=== PATIENT | female | born 1985 | race Caucasian/White ===

== ENCOUNTER 2019-11-05 10:02 | Outpatient (CLI) | payer BC, SELFPAY ==
[2019-11-05 11:49] LABS: Free T4 Free Thyroxine 1.02 ng/mL (0.78-2.19)
[2019-11-09 05:01] LABS: Triiodothyronine T3 Free 2.7 pg/mL (2.3-4.2)
== END 2019-11-05 10:03 | disposition home or self-care (01) ==
PROVIDERS: PCP Physician Assistant; Visit Provider Physician Assistant
DX: E05.90 Thyrotoxicosis, unspecified without thyrotoxic crisis or storm (principal)
CPT/HCPCS: 36415; 84439; 84443; 84481

== ENCOUNTER 2019-11-27 12:38 | Outpatient (CLI) | payer BC, SELFPAY ==
--- NOTE | ~2019-11-27 | MR_ITS ---
EXAMINATION: MR abdomen wo/w con INDICATION: Left kidney lesion TECHNIQUE: Coronal SSFSE ARC, WATER:coronal LAVA-FLEX, Coronal 2D FIESTA FatSat, Axial SSFSE BH ARC, Axial 3D DualEcho BH, Axial SSFSE-IR, Axial DWI b=500, Axial 2D FIESTA FatSat, pre and dynamic postco ntrast Axial LAVA ARC, postcontrast Coronal In and Opposed phase LAVA FLEX COMPARISON: CT, 09/08/2019, 12/23/2015 CONTRAST: Multihance, 15 cc FINDINGS: There is an 11 mm T1 and T2 isointense enhancing mass in the posterior aspect of the left k idney lower pole. The liver, spleen, pancreas, and adrenal glands are normal. The gallbladder is surg ically absent. The right kidney is unremarkable. There are no pathologically enlarged abdominal lymph nodes. No dilated loops of bowel are identified. IMPRESSION: 1. Enhancing mass in the posterior aspect of the left kidney lower pole suspicious for renal cell car cinoma. Urologic evaluation is recommended. Reviewed, dictated and finalized at location A. TRUCK OPERATOR IMPRESSION: 1. Enhancing mass in the posterior aspect of the left kidney lower pole suspici ous for renal cell carcinoma. Urologic evaluation is recommended.
[2019-11-27 13:19] LABS: Blood Urea Nitrogen 20 mg/dL (8-26); Estimated Glomerular Filt Rate 57
== END 2019-11-27 12:39 | disposition home or self-care (01) ==
PROVIDERS: PCP Physician Assistant; Visit Provider Physician Assistant
DX: N28.9 Disorder of kidney and ureter, unspecified (principal)
CPT/HCPCS: 74183; A9577

== ENCOUNTER 2019-12-06 18:06 | Emergency (ER) | payer BC, SELFPAY ==
--- NOTE | ~2019-12-06 | XR_ITS ---
EXAMINATION: XR hand LT min 3V EXAM DATE: 12/06/2019 18:24 INDICATION: Initial encounter following injury, with pain of the left hand. Smashed, bruising and sw elling. TECHNIQUE: Left hand frontal, lateral and oblique projections obtained and reviewed. There is no te or study for comparison. FINDINGS: Left metacarpal bones are unremarkable. There are no acute fractures or dislocations ident ified. There is no subcutaneous gas. The soft tissue is unremarkable. There are no radiopaque for eign bodies. IMPRESSION: No acute osseous findings. Reviewed, dictated and finalized at location A. PROCESS ENGINEER IMPRESSION: No acute osseous findings.
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
[2019-12-06 18:17] VITALS: BP 141/77; PULSE 69; RESP 18; TEMP 37.6; O2SAT 100
== END 2019-12-06 19:16 | disposition home or self-care (01) ==
PROVIDERS: Emergency Provider Nurse Practitioner Family; PCP Physician Assistant
DX: S60.222A Contusion of left hand, initial encounter (principal); W23.0XXA Caught, crushed, jammed, or pinched between moving objects, initial encounter; E05.00 Thyrotoxicosis with diffuse goiter without thyrotoxic crisis or storm; K21.9 Gastro-esophageal reflux disease without esophagitis
CPT/HCPCS: 73130; 99213; G0463

== ENCOUNTER 2020-02-28 13:35 | Outpatient (CLI) | payer BC, SELFPAY ==
--- NOTE | ~2020-02-28 | US_ITS ---
EXAMINATION: US renal BI EXAM DATE: 02/28/2020 14:22 INDICATION: Lesion of left [place] kidney. TECHNIQUE: Multiple grayscale and Doppler images of the kidneys were obtained (by a technologist who performed the scan) and subsequently reviewed. Correlation is made to MRI abdomen 11/07/2019. FINDINGS: Right kidney: There is normal contour and echogenicity. It measures 8.9 x 3.8 x 4.8 centimeters. Th ere are no focal renal lesions identified. There is no hydronephrosis. Left kidney: There is normal contour and echogenicity. It measures 11.4 x 5.2 x 4.8 centimeters. In lateral inferior aspect of the left kidney there is a partially exophytic hypoechoic mass measuring 1 .1 cm. This likely correlates to the previous CT and MRI finding. There is no hydronephrosis. Bladder unremarkable. IMPRESSION: 1. Left kidney 1.1 cm mass identified. Reviewed, dictated and finalized at location A.
== END 2020-02-28 13:36 | disposition home or self-care (01) ==
PROVIDERS: PCP Physician Assistant; Visit Provider Urology
DX: N28.9 Disorder of kidney and ureter, unspecified (principal)
CPT/HCPCS: 76775

== ENCOUNTER 2020-07-19 00:32 | Emergency (ER) | payer BC, SELFPAY ==
--- NOTE | ~2020-07-19 | CT_ITS ---
EXAMINATION: CT brain wo con DATE: 07/19/2020 02:16 INDICATION: Dizziness. TECHNIQUE: Computed tomography (CT) of the head was performed without intravenous contrast. The mA wa s adjusted according to patient size. Iterative reconstruction technique was employed. The dose-lengt h product was 605.33 mGy-cm. COMPARISON: Head CT 07/09/2017 FINDINGS: There is no intracranial hemorrhage, acute infarction, or abnormal intracranial mass lesion . The ventricles are normal in size. The paranasal sinuses are clear. The mastoid air cells are char l. IMPRESSION: 1. Normal brain. Reviewed, dictated and finalized at location A. IMPRESSION: 1. Normal brain.
[2020-07-19 00:39] VITALS: BP 147/79; PULSE 110; RESP 16; TEMP 36.6; O2SAT 100
[2020-07-19 01:04] VITALS: BP 139/91; BP 153/87; PULSE 107; PULSE 97
--- NOTE | 2020-07-19 01:05 | ED.ARRPALP ---
HPI - Arrhythmia/Palpitations General Chief Complaint: Arrhythmia/Palpitations Stated Complaint: racing heart Time Seen by Provider: 07/19/20 00:36 Source: patient Mode of arrival: ambulatory Limitations: no limitations History of Present Illness HPI narrative: This patient is a 34 year old female who presents for evaluation of palpitations. She reports she has been having lightheadedness for months. She reports she felt more lightheaded today . She states it does not feel like she is going to pass out, and she is unable to describe. She is being evaluated by her PCP for evaluation. Tonight she reports she felt her heart racing so she came to ER. She reports intermittent palpitations for months , and she is being referred to a wash crew person for evaluation. She reports she feels better now. She denies fever, nausea, vomiting, chest pain or sob. . complaint: rapid heart beat and palpitations Related Data Home Medications Medication Instructions Recorded Confirmed cholecalciferol (vitamin D3) 125 5,000 unit PO DAILY 10/10/19 03/29/20 mcg (5,000 unit) capsule cetirizine 10 mg capsule 10 mg PO DAILY 03/29/20 03/29/20 fluticasone propionate 50 1 spray NASAL DAILY 03/29/20 03/29/20 mcg/actuation nasal spray,suspension norethindrone 1.5 mg-ethinyl 1 tablet PO DAILY 03/29/20 03/29/20 estradiol 30 mcg(21)/iron 75 mg(7) tablet Allergies Allergy/AdvReac Type Severity Reaction Status Date / Time Penicillins Allergy Mild RASH Verified 12/06/19 18:20 amoxicillin Allergy Unknown Rash Verified 12/06/19 18:20 sulfamethizole Allergy Unknown Rash Verified 12/06/19 18:20 sulfamethoxazole Allergy Unknown Rash Verified 12/06/19 18:20 trimethoprim Allergy Unknown Rash Verified 12/06/19 18:20 clarithromycin AdvReac Unknown Nausea Verified 12/06/19 18:20 erythromycin base AdvReac Unknown Nausea Verified 12/06/19 18:20 Review of Systems Review of Systems: All systems reviewed & are unremarkable except as noted in HPI and below Constitutional: Constitutional: Denies chills and Denies fever(s) Cardiovascular: Cardiovascular: Denies chest pain and Reports rapid heart rate Respiratory: Respiratory: Denies cough and Denies dyspnea Gastrointestinal: Gastrointestinal: Denies abdominal pain, Denies diarrhea, Denies nausea and Denies vomiting Neurologic: Denies vertigo, Denies focal weakness and Denies numbness [facility] Past Medical History Medical History (Updated 07/19/20 @ 03:14 by Sydney Sadler MD) Gallbladder disease Graves' disease Heartburn PMHx of frequent heartburn Infertility Kidney stones UTI (urinary tract infection) Surgical History Surgical History History of cholecystectomy History of extraction of renal calculus Family History Family History Father Hypertension Mother Hypertension Grandparent Hypertension Family history of heart disease in male family member before age 55 Diabetes mellitus Other Family history of cardiovascular disease Family history of seizure disorder Social History Social History Smoking status: Never smoker Alcohol intake: never Gender identity (if verbalized by the patient): Female Exam Const: General: no acute distress and alert Orientation/consciousness: patient oriented x3 HENMT: Head: normocephalic and atraumatic Ears: TM's normal bilaterally Face and sinus: face symmetric Mouth: Yes Normal oral and palatal mucosa present, Yes lip normal, Yes oropharynx normal and Yes moist mucous membranes Throat: posterior oropharynx normal Eyes: EOM: EOMs intact bilaterally Chest: Chest palpation & inspection: normal inspection of the chest Resp: Effort & Inspection: normal respiratory effort and no retractions Auscultation: clear to auscultation bilaterally Cardio: Rate:
[2020-07-19 01:18] VITALS: BP 147/80; PULSE 83
[2020-07-19 01:19] LABS: Basophils Percent Auto 0.4 % (0.2-1.2); Eosinophils Absolute Auto 0.1 K/mm3 (0-0.3); Eosinophils Percent Auto 0.6 % (0-4.4); Hematocrit 40.4 % (37.0-47.0); Hemoglobin 13.7 g/dL (12.0-15.0); Immature Granulocyte Absolute 0.03 K/mm3 (0.00-0.031); Immature Granulocyte Percent A 0.3 % (0-0.5); Lymphocytes Absolute Auto 3.69 K/mm3 (0.9-3.2); Lymphocytes Percent Auto 40.9 % (18.3-44.2); Mean Corpuscular HGB Conc 33.9 g/dl (32-36); Mean Corpuscular Hemoglobin 30.6 pg (26-34); Mean Corpuscular Volume 90.2 fl (80-100); Mean Platelet Volume 11.4 fl (7.4-10.4); Monocytes Absolute Auto 0.4 K/mm3 (0.1-0.6); Monocytes Percent Auto 4.9 % (2.6-8.5); Neutrophils Absolute Auto 4.8 K/mm3 (1.3-6.7); Neutrophils Percent Auto 52.9 % (45.5-73.1); Platelet Count Result 257 k/mm3 (150-375); Red Blood Count 4.48 M/mm3 (4.2-5.4); Red Cell Distribution Width 11.4 % (11.5-14.5)
[2020-07-19] MEDS: SODIUM CHLORIDE 0.9% IV 1,000 ML 999 ML IV CONT (01:25)
[2020-07-19 01:34] LABS: Alanine Aminotransferase 18 U/L (4-35); Albumin Level 4.2 g/dL (3.5-5.1); Alkaline Phosphatase 64 U/L (38-126); Anion Gap 6 mmol/L (8-16); Aspartate Amino Transferase 22 U/L (14-36); Bilirubin,Total 0.2 mg/dL (0.2-1.3); Blood Urea Nitrogen 13 mg/dL (7-17); Calcium 9.7 mg/dL (8.4-10.2); Carbon Dioxide 31 mmol/L (22-30); Chloride 104 mmol/L (98-107); Estimated CRCL calculation 81 ml/min; Estimated Glomerular Filt Rate > 60; Glucose 119 mg/dL (65-105); Lactic Acid Reflex 1.2 mmol/L (0.7-2.1); Magnesium 2.3 mg/dL (1.6-2.3); Potassium 3.7 mmol/L (3.4-5.0); Sodium 141 mmol/L (137-145)
[2020-07-19 01:41] LABS: INR 0.9; Prothrombin Time 12.2 Seconds (11.1-14.7)
[2020-07-19 01:42] LABS: Partial Thromboplastin Time 26.5 SECONDS (22.3-36.8)
[2020-07-19 01:44] LABS: D Dimer 0.35 ug/mL (<0.48)
--- NOTE | 2020-07-19 03:11 | ECG_ITS ---
Measurements Intervals [place] Rate: 112 P: 76 [place]: 138 QRS: 64 QRSD: 82 T: 48 QT: 321 QTc: 440 Interpretive Statements SINUS TACHYCARDIA BORDERLINE ST ABNORMALITY- ANTEROLATERAL LEADS ABNORMAL ECG Electronically Signed On 07-19-2020 7:05:18 CDT by Rene Martinez D.O.
[2020-07-19 03:52] VITALS: BP 119/73; PULSE 80; RESP 18; TEMP 36.6; O2SAT 99
[2020-07-19 04:00] LABS: Free T4 Free Thyroxine Reflex 1.03 ng/dL (0.78-2.19)
[2020-07-19 04:39] LABS: Total Triiodothyronine (T3) 2.04 NG/ML (0.97-1.69)
== END 2020-07-19 03:57 | disposition home or self-care (01) ==
PROVIDERS: Emergency Provider General Practice; PCP Physician Assistant
DX: R00.2 Palpitations (principal); R42 Dizziness and giddiness; E05.00 Thyrotoxicosis with diffuse goiter without thyrotoxic crisis or storm; R12 Heartburn; Z87.442 Personal history of urinary calculi; Z87.440 Personal history of urinary (tract) infections; R00.0 Tachycardia, unspecified; R94.31 Abnormal electrocardiogram [ECG] [EKG]
CPT/HCPCS: 36415; 70450; 80053; 81025; 83605; 83735; 84439; 84443; 84480; 85025; 85380; 85610; 85730; 93005; 96360; 99284; J7030

== ENCOUNTER 2020-08-28 07:42 | Outpatient (CLI) | payer BC, SELFPAY ==
--- NOTE | 2020-09-12 09:37 | P.SLEEP_ITS ---
Sleep Study - Home Unattended Date of Study: 08/28/20 Ordering Provider: Interpreting Physician: Home Sleep Study Type: Watch PAT Height: 1.57 m Weight: 79.832 kg Body Mass Index: 32.1 Neck Circumference (inches): 14 [place]: 12 Reason for Sleep Study Hypersomnolence Sleep History patient has history of snoring, palpitations, syncope. Patient also notices significant daytime sleepiness. She reports poor quality of sleep. [facility] Past Medical History Medical History Gallbladder disease Graves' disease Heartburn PMHx of frequent heartburn Hyperthyroidism Infertility Kidney stones UTI (urinary tract infection) Surgical History Surgical History History of cholecystectomy History of extraction of renal calculus Family History Family History Father Hypertension Mother Hypertension Grandparent Hypertension Family history of heart disease in male family member before age 55 Diabetes mellitus Other Family history of cardiovascular disease Family history of seizure disorder Social History Social History Smoking status: Never smoker Alcohol intake: never Gender identity (if verbalized by the patient): Female Medications Home Medications Medication Instructions Recorded Confirmed Type cholecalciferol (vitamin D3) 125 5,000 unit PO DAILY 10/10/19 08/01/20 History mcg (5,000 unit) capsule norethindrone 1.5 mg-ethinyl 1 tablet PO DAILY 03/29/20 08/01/20 History estradiol 30 mcg(21)/iron 75 mg(7) tablet methimazole 5 mg tablet 5 mg PO QAM #90 tablet 07/30/20 08/01/20 Rx Sleep Procedure Patient underwent home sleep study using watchPat. device Sleep Architecture total recording time 8 hours 26 minutes, total sleep time 7 hours 12 minutes. Percentage of REM sleep 10%. Respiratory Analysis pRDI-15.3 REM-22.2 ,NREM-14.5 pAHI-0.1 KVNG-0.1 Body position - supine 53%, the wrong 13.2%, right lateral 11.4%, left lateral 22.4%. pRDI-15.7 in Supine sleep. Oximetry Data Mean oxygen saturation 96, minimum - 93.KVNG-1 Snoring Profile 2.7 minutes of sleep had mild snoring. Cardiac Profile Mean pulse rate 59, range 44 -100. Assessment and Plan Additional Plan The home sleep study is suggestive of mild to moderate sleep apnea. Appears to be more prominent during REM sleep. There does not appear to be any significant desaturation. Depending upon patient's daytime symptomatology and comorbid conditions consider formal in-lab polysomnographic evaluation and if appropriate positive airway pressure titration. In the interim consider conservative approach which would include maintenance of healthy weight, correction of upper airway obstruction is present, and proper sleep hygiene.
[2020-09-12 09:47] VITALS: BMI 32.1
== END 2020-08-28 07:43 | disposition home or self-care (01) ==
LOC: ANHCSM 07:43
PROVIDERS: PCP Physician Assistant; Visit Provider Internal Medicine Cardiovascular Disease
DX: G47.30 Sleep apnea, unspecified (principal)
CPT/HCPCS: 95800

== ENCOUNTER 2020-09-05 16:42 | Outpatient (CLI) | payer BC, SELFPAY ==
--- NOTE | ~2020-09-05 | US_ITS ---
EXAMINATION: US renal BI DATE: 09/05/2020 15:55 INDICATION: Left renal mass. TECHNIQUE: Multiple ultrasound grayscale images of the kidneys were obtained. COMPARISON: Ultrasound dated 02/28/2020, MRI dated 11/27/[address] dated 09/08/2019 FINDINGS: The right kidney measures 9.7 x 3.9 x 5.0 cm. The left kidney measures 11.5 x 5.0 x 3.7 cm. The kidne ys demonstrate normal echogenicity. No significant interval change in a peripheral 10 mm hypoechoic l esion at the lower pole of the left kidney which appears to correspond in size and location to a prev iously noted avidly enhancing lesion which is concerning for renal cell carcinoma. There is no hydron ephrosis in either kidney. No stones identified. The bladder is normal. IMPRESSION: 1. Unchanged 10 mm hypoechoic lesion at the lower pole of the left kidney which demonstrated enhance ment on prior MRI and CT concerning for renal cell carcinoma. Reviewed, dictated and finalized at location A. AL CHAIRSIDE ASSISTANT IMPRESSION: 1. Unchanged 10 mm hypoechoic lesion at the lower pole of the left kidney whic h demonstrated enhancement on prior MRI and CT concerning for renal cell carcin danny.
[2020-09-05 18:33] LABS: Free T4 Free Thyroxine 0.95 ng/mL (0.78-2.19)
[2020-09-08 13:12] LABS: Triiodothyronine T3 Free 2.7 pg/mL (2.3-4.2)
== END 2020-09-05 16:43 | disposition home or self-care (01) ==
PROVIDERS: PCP Physician Assistant; Referring Provider Physician Assistant; Visit Provider Urology
DX: N28.9 Disorder of kidney and ureter, unspecified (principal); Z51.81 Encounter for therapeutic drug level monitoring; Z79.899 Other long term (current) drug therapy
CPT/HCPCS: 36415; 76775; 84439; 84443; 84481

== ENCOUNTER 2021-01-18 17:34 | Outpatient (CLI) | payer OTHER, SELFPAY | END 2021-01-18 17:35 | disposition home or self-care (01) | LOC: ANHCOVIDVC 17:34 | PROVIDERS: PCP Physician Assistant | DX: Z23 Encounter for immunization (principal) | CPT/HCPCS: 0001A; 91300 ==

== ENCOUNTER → 2021-01-26 06:55 | Outpatient (CLI) | payer OTHER, SELFPAY ==
[2021-01-26 20:53] LABS: SARS-CoV-2 RNA PCR Negative
== END ==
PROVIDERS: PCP Physician Assistant; Visit Provider Obstetrics & Gynecology Gynecology
DX: Z01.812 Encounter for preprocedural laboratory examination (principal); Z20.822 Contact with and (suspected) exposure to COVID-19
CPT/HCPCS: C9803; U0003; U0005

== ENCOUNTER 2021-01-30 01:01 | Day surgery (SDC) | payer OTHER, SELFPAY ==
[2021-01-25 14:51] VITALS: BMI 31.2
--- NOTE | 2021-01-29 14:42 | WPDANESEPPF ---
Anes - Initial Pre Proc Eval Procedure: Operation Date: 01/30/21 07:30 Proposed Procedures p Removal Bartholin's Cyst Marsupialization - Anna Hull MD Date/Time: 01/29/21 14:42 Surgeon: Anna Hull MD Pre Op Diagnosis: abscess of bartholin Patient Data Age: 35 Gender: F Height: 1.57 m Weight: 77.56 kg Allergies Allergy/AdvReac Type Severity Reaction Status Date / Time Penicillins Allergy Mild RASH Verified 01/25/21 14:49 amoxicillin Allergy Unknown Rash Verified 01/25/21 14:49 sulfamethizole Allergy Unknown Rash Verified 01/25/21 14:49 sulfamethoxazole Allergy Unknown Rash Verified 01/25/21 14:49 trimethoprim Allergy Unknown Rash Verified 01/25/21 14:49 clarithromycin AdvReac Unknown Nausea Verified 01/25/21 14:49 erythromycin base AdvReac Unknown Nausea Verified 01/25/21 14:49 Home Medications Medication Instructions Recorded Confirmed Type cholecalciferol (vitamin D3) 125 5,000 unit PO DAILY 10/10/19 01/30/21 History mcg (5,000 unit) capsule methimazole 5 mg tablet 5 mg PO QAM #90 tablet 11/27/20 01/30/21 Rx docusate sodium [Colace] 100 mg PO BID 01/25/21 01/30/21 History cephalexin 500 mg PO TID 01/30/21 01/30/21 History Patient hx anesthesia problems: none Family hx anesthesia problems: none PMFSH Past Medical History Medical History (Updated 01/29/21 @ 14:43 by Liang Shirley MD) Gallbladder disease Graves' disease Heartburn PMHx of frequent heartburn Hyperthyroidism Infertility Kidney mass Kidney stones Obesity Other hypersomnia UTI (urinary tract infection) Surgical History Surgical History History of cholecystectomy History of extraction of renal calculus Family History Family History Father Hypertension Mother Hypertension Grandparent Hypertension Family history of heart disease in male family member before age 55 Diabetes mellitus Other Family history of cardiovascular disease Family history of seizure disorder Social History Social History Smoking status: Never smoker Alcohol intake: never Substance use: never Substance use type: does not use Living arrangements: with family Gender identity (if verbalized by the patient): Female Spiritual care concerns: No Anes - Eval Final PreProcedure Day of Procedure 01/29/21 14:42 Patient weight: obese Heart: regular rate and rhythm Lungs: clear to auscultation and normal air movement Airway: Mallampati scale class II Neurological: alert and oriented Last oral intake: >/= 8 hours ASA classification: III Emergent: no Anesthetic plan: proceed Anesthesia type and monitoring: general GIVS and LMA Informed Consent: The patient's anesthetic plan and its attendant risks and benefits were discussed with the patient/family/POA. Questions were solicited and answers provided to the satisfaction of the patient/family/POA.
[2021-01-30 06:18] VITALS: BP 126/86; PULSE 103; RESP 20; TEMP 36.8; O2SAT 100
--- NOTE | 2021-01-30 07:09 | P.HP_ITS ---
History of Present Illness History of Present Illness Consent: Risks, benefits, and alternatives have been discussed and questions answered. Patient agrees to proceed with procedure. Chief complaint: abscess of bartholin Narrative: Mariana Wallace is a 35 year old female recurrent bartholin abscess on right and persistent bartholin cyst on the left. Plan to do marsupilization bilaterally. Reviewed risks of recurrence, infection, and bleeding. Agrees to proceed. Review of Systems Review of Systems: Narrative: not repeated day of surgery; patient states no changes in status [facility] Past Medical History Medical History (Updated 01/30/21 @ 07:14 by Anna Hull MD) Gallbladder disease Graves' disease Heartburn PMHx of frequent heartburn Hyperthyroidism Infertility Kidney mass Kidney stones Obesity Other hypersomnia UTI (urinary tract infection) Surgical History Surgical History History of cholecystectomy History of extraction of renal calculus Family History Family History Father Hypertension Mother Hypertension Grandparent Hypertension Family history of heart disease in male family member before age 55 Diabetes mellitus Other Family history of cardiovascular disease Family history of seizure disorder Social History Social History Smoking status: Never smoker Alcohol intake: never Substance use: never Substance use type: does not use Living arrangements: with family Gender identity (if verbalized by the patient): Female Spiritual care concerns: No Meds Home Medications and Allergies Home Medications Medication Instructions Recorded Confirmed Type cholecalciferol (vitamin D3) 125 5,000 unit PO DAILY 10/10/19 01/30/21 History mcg (5,000 unit) capsule methimazole 5 mg tablet 5 mg PO QAM #90 tablet 11/27/20 01/30/21 Rx docusate sodium [Colace] 100 mg PO BID 01/25/21 01/30/21 History cephalexin 500 mg PO TID 01/30/21 01/30/21 History ibuprofen 800 mg PO Q6H PRN 01/30/21 01/30/21 History Allergies Allergy/AdvReac Type Severity Reaction Status Date / Time Penicillins Allergy Mild RASH Verified 01/30/21 07:12 amoxicillin Allergy Unknown Rash Verified 01/30/21 07:12 sulfamethizole Allergy Unknown Rash Verified 01/30/21 07:12 sulfamethoxazole Allergy Unknown Rash Verified 01/30/21 07:12 trimethoprim Allergy Unknown Rash Verified 01/30/21 07:12 clarithromycin AdvReac Unknown Nausea Verified 01/30/21 07:12 erythromycin base AdvReac Unknown Nausea Verified 01/30/21 07:12 Exam : External Female Exam: other (egg size R abscess Bartholin gland; 3 cm L cyst) Speculum Exam - Vagina: normal appearance of the vagina Speculum Exam - Cervix: normal appearance of the cervix Bimanual exam- vagina & u terus: normal bimanual exam Assessment and Plan Assessment and plan (1) Bartholin's gland abscess: Code(s): N75.1 - Abscess of Bartholin's gland Status: Acute Assessment and Plan: plan to proceed with Bilateral marsupilization (2) Bartholin gland cyst: Code(s): N75.0 - Cyst of Bartholin's gland Status: Acute
--- NOTE | 2021-01-30 07:09 | WPDHPUPDATE1 ---
History and Physical Update Update Date/Time: 01/30/21 07:09 History and Physical has been reviewed, including an updated exam of the patient. There are NO changes in the patient's condition. Risks, benefits, and alternatives have been discussed and questions answered. Patient agrees to proceed with procedure.
[2021-01-30] MEDS: LACTATED RINGERS 1,000 ML 30 ML IV CONT (07:10)
[2021-01-30] MEDS: ACETAMINOPHEN 500 MG TABLET 1000 MG PO (07:12)
[2021-01-30] MEDS: LIDO 1%/EPINEPHRINE 1:100,000 20 ML VIAL 50 ML INFILTRATE (07:40)
[2021-01-30] MEDS: KETOROLAC 30 MG/ML VIAL (*BKC) IV PUSH (07:44)
--- NOTE | 2021-01-30 07:51 | PM.PROC ---
Procedure Note - Detailed Date of procedure: 01/30/21 Pre-op diagnosis: abscess of bartholin R abscess L cyst Post-op diagnosis: same Procedure performed: Bilateral marsupialization of lying gland Description of procedure: The right Bartholin abscess is injected on the undersurface with 1% lidocaine. A 2cm skin incision is made and copious amounts of foul-smelling fluid are drained. A Palak is used to break up any pockets of fluid within the abscess. Four sutures are placed to keep the abscess open 1 at 12, 3., 6, and 9. The left Bartholin cyst is injected with 1% lidocaine in a 2cm skin incision is made copious amounts of thick gelatinous material are expelled. Four sutures are placed to keep the cyst open 1 at 12, 3, 6, and 9. The patient is awakened from anesthesia and taken to recovery in stable condition. Sponge, instrument, and needle counts are correct per the OR staff. Anesthesia: MAC and local Surgeon: Anna Hull MD Estimated blood loss (mL): 10 Drains: No Packing: No Pathology: none sent Complications: No immediate complications Condition: stable Disposition: PACU Findings: egg size abcess on R Bartholin and 3 cm cyst on L Bartholin gland
[2021-01-30 07:55] VITALS: BP 101/53; PULSE 73; RESP 12; O2SAT 100
[2021-01-30] MEDS: fentaNYL CITRATE INJ (*CRX) 100 MCG/2 ML VIAL 25 MCG IV PUSH ×2 (08:16→08:20)
[2021-01-30 08:30] VITALS: BP 130/70; PULSE 77; RESP 12; O2SAT 99
[2021-01-30 09:00] VITALS: BP 125/72
[2021-01-30] MEDS: oxyCODONE HCL (*CRX) 5 MG TAB IR PO (09:11)
[2021-01-30 09:54] VITALS: BP 120/70
== END 2021-01-30 09:50 | disposition home or self-care (01) ==
PROVIDERS: PCP Physician Assistant; Visit Provider Obstetrics & Gynecology Gynecology
PROC: (CPT 56440; principal; 2021-01-30 07:30)
DX: N75.1 Abscess of Bartholin's gland (principal); N75.0 Cyst of Bartholin's gland; E05.00 Thyrotoxicosis with diffuse goiter without thyrotoxic crisis or storm; E66.9 Obesity, unspecified; Z68.31 Body mass index [BMI] 31.0-31.9, adult
CPT/HCPCS: 56440; A9270; C9803; J1885; J2250; J2405; J2704; J3010; J7120; U0003; U0005

== ENCOUNTER 2021-02-08 17:30 | Outpatient (CLI) | payer OTHER, SELFPAY | END 2021-02-08 17:31 | disposition home or self-care (01) | LOC: ANHCOVIDVC 17:30 | PROVIDERS: PCP Physician Assistant | DX: Z23 Encounter for immunization (principal) | CPT/HCPCS: 0002A; 91300 ==

== ENCOUNTER → 2021-02-20 03:16 | Outpatient (CLI) | payer OTHER, SELFPAY ==
[2021-02-20 16:17] LABS: SARS-CoV-2 RNA PCR Negative
== END ==
PROVIDERS: PCP Physician Assistant; Visit Provider Internal Medicine Critical Care Medicine
DX: R68.89 Other general symptoms and signs (principal); Z20.822 Contact with and (suspected) exposure to COVID-19
CPT/HCPCS: C9803; U0003; U0005

== ENCOUNTER 2021-02-22 08:55 | Outpatient (CLI) | payer OTHER, SELFPAY ==
--- NOTE | 2021-03-11 12:46 | WPDSLEEPSTUD ---
Sleep Study Date of Study: 02/22/21 Ordering Provider: Kash Sarah MD Interpreting Physician: Reny Vega MD Sleep Study Type: Polysomnogram Height: 1.57 m Weight: 78.925 kg Body Mass Index: 31.8 Neck Circumference (inches): 14.5 Errol: 9 Reason for Sleep Study Daytime fatigue, interrupted sleep, palpitations * 08/28/2020 Home sleep test with [facility] - AHI normal, REM AHI 22.2, more events in supine position Sleep History Mariana Wallace is a 35 year old female who wakes up throughout the night. She has had a previous home sleep study. Both parents take sleep aids. She rarely awakens from sleep feeling short of breath. She occasionally awakens at night with heartburn, belching or coughing. She occasionally snores. She does not snore loudly enough that others complain about it. She occasionally has trouble sleep with a cold. She occasionally wakes up gasping for breath at night. She does not have breathing problems at night observed by others. She does not sweat excessively at night. She rarely notices her heart pounding or beating irregularly night. She occasionally falls asleep during the day, never involuntarily never while driving. She does not have loss of muscle tone was strong emotion. She does not have daytime difficulties due to excessive sleepiness. She does not feel paralyzed on waking or falling asleep. She denies having vivid dreamlike scenes upon awakening or falling asleep. She does not feel afraid to go to sleep. She does not have nightmares. She rarely remembers her dreams. She rarely has racing thoughts. She does not feel sad or depressed. She rarely has anxiety. She does not have muscular tension or notice parts of her body jerking. She does not kick at night and does not have crawling or aching feelings in her legs before sleep. She rarely has any kind of leg pain at night. She does not have morning jaw pain. She does not grind her teeth during sleep. She is not bothered by pain during the day. She is not awakened by pain at night. She does not wake up feeling stiff in the morning with sore or achy muscles. She rarely wakes up with pain in the neck and spine. She has palpitations, dizziness and takes antacids regularly. Normal bedtime 9:00 p.m. falling asleep within 5 minutes typically waking 3-4 times during the night. While awake she uses the bathroom and returns to bed. She is able to return to sleep within 5-10 minutes. Her wake-up time is 6:30 a.m.. On the weekends, bedtime is 10:00 p.m. and wake up time is 7:30 a.m.. She estimates 8 hours of sleep at night. She has 4 children ranging in age from 14 years to 3 years. she takes naps in the afternoon or evening. A short nap may be refreshing. Most of the time she feels good in the morning. She feels better in the morning compared other times of day. Habits: Never smoked tobacco. Caffeine 2 servings a day. No alcohol or recreational drugs. [facility] Past Medical History Medical History Gallbladder disease Graves' disease Heartburn PMHx of frequent heartburn Hyperthyroidism Infertility Kidney mass Kidney stones Obesity Other hypersomnia UTI (urinary tract infection) Surgical History Surgical History History of cholecystectomy History of extraction of renal calculus Family History Family History Father Hypertension Mother Hypertension Grandparent Hypertension Family history of heart disease in male family member before age 55 Diabetes mellitus Other Family history of cardiovascular disease Family history of seizure disorder Social History Social History Smoking status: Never smoker Alcohol intake: never Substance use: never Substance use type: does not use Gender identity (if v
[2021-03-11 13:21] VITALS: BMI 31.8
== END 2021-02-23 09:18 | disposition home or self-care (01) ==
LOC: ANHCSM 02-26 08:55
PROVIDERS: PCP Physician Assistant; Visit Provider Internal Medicine Pulmonary Disease
DX: G47.30 Sleep apnea, unspecified (principal); G47.19 Other hypersomnia
CPT/HCPCS: 95810

== ENCOUNTER 2021-06-12 10:24 | Outpatient (CLI) | payer OTHER, SELFPAY ==
[2021-06-12 17:27] LABS: Free T4 Free Thyroxine 0.92 ng/mL (0.78-2.19)
[2021-06-12 17:45] LABS: Total Triiodothyronine (T3) 1.46 NG/ML (0.97-1.69)
== END 2021-06-12 10:25 | disposition home or self-care (01) ==
LOC: ANHWCLAB 10:28
PROVIDERS: PCP Physician Assistant; Visit Provider Internal Medicine Endocrinology, Diabetes & Metabolism
DX: E05.90 Thyrotoxicosis, unspecified without thyrotoxic crisis or storm (principal)
CPT/HCPCS: 36415; 84439; 84443; 84480

== ENCOUNTER 2021-09-19 10:07 | Outpatient (CLI) | payer OTHER, SELFPAY ==
--- NOTE | ~2021-09-19 | US_ITS ---
EXAMINATION: US retroperitoneal comp DATE: 09/19/2021 10:29 INDICATION: Disorder of the kidney and ureter, unspecified TECHNIQUE: Multiple grayscale and Doppler ultrasound images of the kidneys were obtained. COMPARISON: 09/05/2020 FINDINGS: The right kidney measures 9.8 x 4.6 x 6.3 cm. The left kidney measures 11.8 x 4.7 x 5.7 cm. A previously described small mass in the lower pole of the left kidney is not definitely sonographic ally detected. The kidneys demonstrate normal parenchymal echogenicity. There is no hydronephrosis. T he bladder is normal. IMPRESSION: 1. Previously described left kidney mass not clearly demonstrated. Reviewed, dictated and finalized at location A. SHING MACHINE OPERATOR HELPER
== END 2021-09-19 10:08 ==
LOC: MICIMG 10:08
PROVIDERS: PCP Physician Assistant; Visit Provider Urology
DX: N28.9 Disorder of kidney and ureter, unspecified (principal)
CPT/HCPCS: 76770

== ENCOUNTER 2021-09-27 18:34 | Emergency (ER) | payer OTHER, SELFPAY ==
[2021-09-27 19:06] VITALS: BP 141/89; PULSE 113; RESP 16; TEMP 36.2; O2SAT 98
--- NOTE | 2021-09-27 19:14 | PC.NURSE ---
pt and spoused decided that they do not wish to wait in crowded waiting room. will return if symptoms worsen. iv d/c intact.
== END 2021-09-28 03:16 | disposition left against medical advice (07) ==
PROVIDERS: PCP Physician Assistant
DX: Z53.21 Procedure and treatment not carried out due to patient leaving prior to being seen by health care provider (principal)
CPT/HCPCS: 99199

== ENCOUNTER 2022-02-09 09:25 | Emergency (ER) | payer SELFPAY ==
--- NOTE | 2022-02-09 09:31 | ED.EYEPROB ---
HPI - Eye Problem General Chief complaint: Eye Problems Stated complaint: left eye pain/redness Time Seen by Provider: 02/09/22 09:32 Source: patient Mode of arrival: ambulatory Limitations: no limitations History of Present Illness HPI Narrative: Ms. Wallace is a 36-year-old female patient presenting to the clinic today with complaints of left eye pain/redness X 1 day. She reports she woke up with her left lower eyelid swelling and painful this morning. She denies any drainage coming from her eye or any known injury. chief complaint: eye pain and eye redness Related Data Home Medications Medication Instructions Recorded Confirmed cholecalciferol (vitamin D3) 125 5,000 unit PO DAILY 10/10/19 02/09/22 mcg (5,000 unit) capsule Allergies Allergy/AdvReac Type Severity Reaction Status Date / Time Penicillins Allergy Mild RASH Verified 02/09/22 09:39 amoxicillin Allergy Unknown Rash Verified 02/09/22 09:39 sulfamethizole Allergy Unknown Rash Verified 02/09/22 09:39 sulfamethoxazole Allergy Unknown Rash Verified 02/09/22 09:39 trimethoprim Allergy Unknown Rash Verified 02/09/22 09:39 clarithromycin AdvReac Unknown Nausea Verified 02/09/22 09:39 erythromycin base AdvReac Unknown Nausea Verified 02/09/22 09:39 Review of Systems Review of Systems: Pertinent positives per HPI. Patient denies any fever, chills, rash, headache, dizziness, cough, runny nose, sore throat, shortness of breath, chest pain, palpitations, nausea, vomiting, diarrhea, constipation, abdominal pain, or any urinary issues. PMFSH Past Medical History Medical History Gallbladder disease Graves' disease Heartburn PMHx of frequent heartburn Hyperthyroidism Infertility Kidney mass Kidney stones Obesity Other hypersomnia UTI (urinary tract infection) Surgical History Surgical History History of cholecystectomy History of extraction of renal calculus Family History Family History Father Hypertension Mother Hypertension Grandparent Hypertension Family history of heart disease in male family member before age 55 Diabetes mellitus Other Family history of cardiovascular disease Family history of seizure disorder Social History Social History Smoking status: Never smoker Alcohol intake: never Substance use: never Substance use type: does not use Gender identity (if verbalized by the patient): Female Spiritual care concerns: No Comments At the time of my signature, I reviewed and agree with the nursing past medical, surgical, social, and family history. There is no relevant family history pertinent to the patient complaint. Exam Narrative: General: Well-developed, well nourished, in no apparent distress Head: Normocephalic, atraumatic Eyes: Pupils equally round and reactive to light bilaterally, EOM intact, sclera and conjunctive clear, no discharge, right lids normal, left upper eyelid normal, left lower eyelid swollen red with a pustular raised area to the outer lateral eyelid, tenderness to palpation over the pustular lesion. Ears: TMs intact and clear, ear canals clear, no drainage, grossly hearing normal. Nose: Nares patent, no discharge, no inflammation, no sinus tenderness. Mouth: Oropharynx without lesions or masses, good dentition, MMM. Neck: Supple, trachea midline, no enlargement of anterior or posterior cervical nodes, no thyroid masses or goiter palpable. Cardio: Regular rate and rhythm, s1 and s2 normal, no murmur appreciated. Resp: Clear to auscultation bilaterally anteriorly and posteriorly, no rhonchi, rales, wheezing or rubs Course Course Emergency Course: Portions of this record may have been created with voice recognition software. Level of Care: E
[2022-02-09 09:35] VITALS: BP 133/82; PULSE 75; RESP 16; TEMP 37.1; O2SAT 100
== END 2022-02-09 09:50 | disposition home or self-care (01) ==
PROVIDERS: Emergency Provider Nurse Practitioner Family; PCP Physician Assistant
DX: H00.015 Hordeolum externum left lower eyelid (principal)
CPT/HCPCS: 99213; G0463

== ENCOUNTER 2022-05-07 11:08 | Outpatient (CLI) | payer OTHER, SELFPAY ==
--- NOTE | ~2022-05-07 | US_ITS ---
EXAMINATION: US thyroid DATE: 05/07/2022 12:05 INDICATION: Thyrotoxicosis, unspecified without thyrotoxic crisis. TECHNIQUE: Multiple ultrasound images of the thyroid were obtained. COMPARISON: Ultrasound 10/17/2019, 05/04/2018, 01/13/2016 FINDINGS: The right thyroid lobe measures 5.4 x 2.0 x 1.8 cm. The left thyroid lobe measures 5.6 x 1.6 x 2.0 c m. The thyroid demonstrates heterogeneous echogenicity. Vascularity is normal. In the left thyroid lo be, there is a 5 mm solid, hypoechoic, wider than tall nodule with smooth margin without echogenic fo ci (TI-RADS TR4). In the thyroid isthmus, there is a 12 mm mixed cystic and solid, hypoechoic, wider than tall nodule with lobulated margin without echogenic foci (TR4), stable from 05/04/18. In the righ t thyroid lobe, there is a 5 mm solid, isoechoic, wider than tall nodule with ill-defined margin with out echogenic foci (TR3). In the right thyroid lobe, there is a 7 mm solid, hypoechoic, wider than ta ll nodule with ill-defined margin without echogenic foci (TR4). IMPRESSION: 1. Thyroid nodules. Consider thyroid ultrasound in 2 years. Reviewed, dictated and finalized at location A.
== END 2022-05-07 11:09 | disposition home or self-care (01) ==
LOC: ANHIMG 11:11
PROVIDERS: PCP Physician Assistant; Visit Provider Nurse Practitioner Family
DX: E04.2 Nontoxic multinodular goiter (principal); E05.90 Thyrotoxicosis, unspecified without thyrotoxic crisis or storm
CPT/HCPCS: 76536

== ENCOUNTER 2022-05-30 08:56 | Outpatient (CLI) | payer OTHER, SELFPAY ==
[2022-05-30 09:09] LABS: Mean Corpuscular HGB Conc 32.5 g/dl (32-36); Mean Corpuscular Hemoglobin 29.6 pg (26-34); Mean Corpuscular Volume 91.1 fl (80-100); Mean Platelet Volume 10.2 fl (7.4-10.4); Platelet Count Result 259 k/mm3 (150-375); Red Blood Count 4.39 M/mm3 (4.2-5.4); Red Cell Distribution Width 12.1 % (11.5-14.5); White Blood Count 6.7 K/mm3 (4.5-10.0)
[2022-05-30 09:54] LABS: Alanine Aminotransferase 19 U/L (6-35); Albumin Level 4.4 g/dL (3.5-5.1); Alkaline Phosphatase 77 U/L (38-126); Anion Gap 8 mmol/L (8-16); Aspartate Amino Transferase 27 U/L (14-36); Bilirubin,Total 0.4 mg/dL (0.2-1.3); Blood Urea Nitrogen 13 mg/dL (7-17); Calcium 9.2 mg/dL (8.4-10.2); Carbon Dioxide 28 mmol/L (22-30); Chloride 100 mmol/L (98-107); Cholesterol 232 mg/dL (0-200); Estimated Glomerular Filt Rate > 60; Glucose 91 mg/dL (65-110); HDL Direct 45 mg/dL; Potassium 4.4 mmol/L (3.4-5.0); Sodium 136 mmol/L (137-145); Triglycerides 219 mg/dL (<150)
[2022-05-30 10:06] LABS: LDL Cholesterol Direct 156 mg/dL
[2022-05-30 10:51] LABS: Free T4 Free Thyroxine 1.03 ng/mL (0.78-2.19); Vitamin D 25 Hydroxy 64.8 ng/mL
[2022-06-02 20:26] LABS: Triiodothyronine T3 Free 3.3 pg/mL (2.3-4.2)
== END 2022-05-30 08:57 | disposition home or self-care (01) ==
PROVIDERS: PCP Physician Assistant; Visit Provider Nurse Practitioner Family
DX: E05.90 Thyrotoxicosis, unspecified without thyrotoxic crisis or storm (principal); E55.9 Vitamin D deficiency, unspecified; R53.83 Other fatigue
CPT/HCPCS: 36415; 80053; 80061; 82306; 82607; 84439; 84443; 84481; 85027

== ENCOUNTER 2022-08-18 08:21 | Outpatient (CLI) | payer OTHER, SELFPAY ==
[2022-08-20 14:06] LABS: Thyroid Stimulating Immunoglob 431 % baseline (<140)
[2022-08-24 11:52] LABS: Testosterone Total 15 ng/dL (2-45)
== END 2022-08-18 08:22 | disposition home or self-care (01) ==
PROVIDERS: PCP Physician Assistant; Visit Provider Internal Medicine Endocrinology, Diabetes & Metabolism
DX: E05.00 Thyrotoxicosis with diffuse goiter without thyrotoxic crisis or storm (principal); L65.9 Nonscarring hair loss, unspecified; E05.90 Thyrotoxicosis, unspecified without thyrotoxic crisis or storm
CPT/HCPCS: 36415; 84403; 84445

== ENCOUNTER 2022-09-24 18:03 | Emergency (ER) | payer OTHER, SELFPAY ==
--- NOTE | 2022-09-24 18:04 | ED.URI ---
HPI - URI/Sore Throat General Chief Complaint: Upper Respiratory Infection Stated Complaint: sore throat/cough/fatigue Time Seen by Provider: 09/24/22 18:04 Source: patient Mode of arrival: ambulatory Limitations: no limitations History of Present Illness HPI Narrative: Talita is a 37-year-old female patient presenting to clinic today with complaints of sore throat, cough, and fatigue x4 days. She reports no fever but has had some chills. MD elicited complaint: sore throat and nasal congestion Related Data Home Medications Medication Instructions Recorded Confirmed cholecalciferol (vitamin D3) 125 5,000 unit PO DAILY 10/10/19 06/03/22 mcg (5,000 unit) capsule Allergies Allergy/AdvReac Type Severity Reaction Status Date / Time Penicillins Allergy Mild RASH Verified 09/24/22 18:05 amoxicillin Allergy Unknown Rash Verified 09/24/22 18:05 sulfamethizole Allergy Unknown Rash Verified 09/24/22 18:05 sulfamethoxazole Allergy Unknown Rash Verified 09/24/22 18:05 trimethoprim Allergy Unknown Rash Verified 09/24/22 18:05 clarithromycin AdvReac Unknown Nausea Verified 09/24/22 18:05 erythromycin base AdvReac Unknown Nausea Verified 09/24/22 18:05 Review of Systems Review of Systems: Pertinent positives per HPI. Patient denies any fever, rash, headache, visual changes, dizziness, shortness of breath, chest pain, palpitations, nausea, vomiting, diarrhea, constipation, abdominal pain, or any urinary issues. PMFSH Past Medical History Medical History Bartholin gland cyst Body mass index (BMI) 23 or greater (02/01/19) Chronic cholecystitis with calculus Daytime hypersomnia Gallbladder disease Graves' disease Heartburn PMHx of frequent heartburn Hyperthyroidism Infertility Kidney mass Kidney stones Left otitis media Obesity Other hypersomnia UTI (urinary tract infection) Surgical History Surgical History History of cholecystectomy History of extraction of renal calculus Family History Family History Father Hypertension Mother Hypertension Grandparent Hypertension Family history of heart disease in male family member before age 55 Diabetes mellitus Other Family history of cardiovascular disease Family history of seizure disorder Social History Social History Smoking status: Never smoker Alcohol intake: never Substance use: never Gender identity (if verbalized by the patient): Female Spiritual care concerns: No Comments At the time of my signature, I reviewed and agree with the nursing past medical, surgical, social, and family history. There is no relevant family history pertinent to the patient complaint. Exam Narrative: General: Well-developed, well nourished, in no apparent distress Head: Normocephalic, atraumatic Eyes: Pupils equally round and reactive to light bilaterally, EOM intact, sclera and conjunctive clear, no discharge, lids normal Ears: TMs intact and dull, ear canals clear, no drainage, grossly hearing normal. Nose: Nares patent, clear nasal discharge, no inflammation, no sinus tenderness. Mouth: Oral pharynx without lesions or masses, good dentition, MMM. postnasal drip, oropharynx red Neck: Supple, trachea midline, mild enlargement of anterior cervical nodes, no thyroid masses or goiter palpable. Cardio: Regular rate and rhythm, s1 and s2 normal, no murmur appreciated. Resp: Clear to auscultation bilaterally, no rhonchi, rales, wheezing or rubs Course Course Emergency Course: Portions of this record may have been created with voice recognition software. Level of Care: Express Care Visit Vital Signs Vital signs: Vital Signs Temperature 36.7 C 09/24/22 18:15 Pulse Rate 112 H 09/24/22 18:15 Respiratory
[2022-09-24 18:15] VITALS: BP 126/77; PULSE 112; RESP 16; TEMP 36.7; O2SAT 100
== END 2022-09-24 18:35 | disposition home or self-care (01) ==
PROVIDERS: Emergency Provider Nurse Practitioner Family; PCP Physician Assistant
DX: J06.9 Acute upper respiratory infection, unspecified (principal); J02.9 Acute pharyngitis, unspecified; B34.9 Viral infection, unspecified; E05.00 Thyrotoxicosis with diffuse goiter without thyrotoxic crisis or storm; E66.9 Obesity, unspecified; Z68.33 Body mass index [BMI] 33.0-33.9, adult
CPT/HCPCS: 87081; 99213; G0463

== ENCOUNTER 2022-10-16 11:07 | Outpatient (CLI) | payer OTHER, SELFPAY ==
--- NOTE | ~2022-10-16 | US_ITS ---
EXAMINATION: US retroperitoneal limited DATE: 10/16/2022 12:26 INDICATION: Left renal lesion TECHNIQUE: Multiple ultrasound grayscale images of the kidneys were obtained. COMPARISON: None. FINDINGS: The right kidney is not visualized. The left kidney measures 12.8 x 4.5 x 5.2 cm. There appears to be separation of the upper and lower pole collecting systems. Left kidney demonstrates normal echogenic ity. A previously noted 1 cm hypoechoic lesion at the lower pole the left kidney seen on ultrasound d ated 02/28/2020 is not appreciated on the current images. No abnormal masses identified in the left ki dney. There is no hydronephrosis in the left kidney. No stones identified. The bladder is normal wit h calculated bladder volume of 63 mL. IMPRESSION: 1. 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 A previous noted 1 cm lesion at the lower pole of the left kidney is not identified in the current study. Reviewed, dictated and finalized at location A. ESSOR OF PHILOSOPHY IMPRESSION: 1. Duplicated collecting system of the left kidney which appears otherwise nor mal. A previous noted 1 cm lesion at the lower pole of the left kidney is not i dentified in the current study.
== END 2022-10-16 11:08 | disposition home or self-care (01) ==
LOC: ANHIMG 11:09
PROVIDERS: PCP Physician Assistant; Visit Provider Urology
DX: N28.9 Disorder of kidney and ureter, unspecified (principal)
CPT/HCPCS: 76775

== ENCOUNTER 2023-04-05 17:16 | Emergency (ER) | payer OTHER, SELFPAY ==
[2023-04-05 17:30] VITALS: BP 145/74; PULSE 64; RESP 16; TEMP 37.1; O2SAT 99
--- NOTE | 2023-04-05 17:46 | ED.FEMALEGU ---
HPI - Female Genitourinary General Chief complaint: Urogenital-Female Stated complaint: pain when urinating Time Seen by Provider: 04/05/23 17:46 Source: patient Mode of arrival: ambulatory Limitations: no limitations History of Present Illness HPI Narrative: 37-year-old female presents with complaint of urinary frequency, dysuria, bladder pressure feeling of bladder fullness starting yesterday. Afebrile. Patient has history of interstitial cystitis. Reports that she has not had a urinary tract infection or an interstitial cystitis flare for several years. Denies nausea vomiting. No back pain. All systems reviewed and negative except as noted above. Related Data Allergies Allergy/AdvReac Type Severity Reaction Status Date / Time Penicillins Allergy Mild RASH Verified 04/05/23 17:20 amoxicillin Allergy Unknown Rash Verified 04/05/23 17:20 sulfamethizole Allergy Unknown Rash Verified 04/05/23 17:20 sulfamethoxazole Allergy Unknown Rash Verified 04/05/23 17:20 trimethoprim Allergy Unknown Rash Verified 04/05/23 17:20 clarithromycin AdvReac Unknown Nausea Verified 04/05/23 17:20 erythromycin base AdvReac Unknown Nausea Verified 04/05/23 17:20 Review of Systems Review of Systems: CONSTITUTIONAL: Denies fever, chills, or sweats. EYES: Denies visual changes, redness, or discharge. ENT: Denies rhinorrhea, congestion, sore throat, or otalgia. CARDIOVASCULAR: Denies chest pain, palpitations, or edema. RESPIRATORY: Denies cough or dyspnea. GASTROINTESTINAL: Denies abdominal pain, nausea, vomiting, or diarrhea. GENITOURINARY: Reports dysuria, frequency, urgency, pressure. Denies hematuria. SKIN: Denies rash or itching. MUSCULOSKELETAL: Denies back pain, joint pain, or myalgia. NEUROLOGIC: Denies headache, numbness, or weakness. PSYCHIATRIC: Denies anxiety or depression. All other systems reviewed are negative, except as documented in HPI. [facility] Past Medical History Medical History Bartholin gland cyst Body mass index (BMI) 23 or greater (02/01/19) Chronic cholecystitis with calculus Daytime hypersomnia Gallbladder disease Graves' disease Heartburn PMHx of frequent heartburn Hyperthyroidism Infertility Kidney mass Kidney stones Left otitis media Obesity Other hypersomnia UTI (urinary tract infection) Surgical History Surgical History History of cholecystectomy History of extraction of renal calculus Family History Family History Father Hypertension Mother Hypertension Grandparent Hypertension Family history of heart disease in male family member before age 55 Diabetes mellitus Other Family history of cardiovascular disease Family history of seizure disorder Social History Social History Smoking status: Never smoker Alcohol intake: never Substance use: never Living arrangements: with family Gender identity (if verbalized by the patient): Female Spiritual care concerns: No Comments At time of signature, agree with nursing past medical, surgical, social and family history. There is no relevant family history pertinent to the presenting complaint. Exam Narrative: GENERAL: This is a well-nourished, well-developed patient, in no apparent distress. HEAD: normocephalic, atraumatic. EYES: PERRL. Sclera clear/white. Vision is grossly intact. EARS: External ears normal NOSE: External nose normal NECK: Neck supple, non-tender without lymphadenopathy, masses or thyromegaly. CARDIOVASCULAR: Regular rate and rhythm without murmurs, gallops, or rubs. RESPIRATORY: Clear to auscultation. Breath sounds equal bilaterally. No wheezes, rales, or rhonchi. SKIN: warm, Dry, intact with no suspicious lesions or rash, good texture and turgor. NEUR
== END 2023-04-05 18:02 | disposition home or self-care (01) ==
PROVIDERS: Emergency Provider Nurse Practitioner Family; PCP Physician Assistant
DX: N39.0 Urinary tract infection, site not specified (principal); E05.00 Thyrotoxicosis with diffuse goiter without thyrotoxic crisis or storm; R12 Heartburn; E05.90 Thyrotoxicosis, unspecified without thyrotoxic crisis or storm; E66.9 Obesity, unspecified; Z68.33 Body mass index [BMI] 33.0-33.9, adult
CPT/HCPCS: 81003; 87086; 99213; G0463

== ENCOUNTER 2023-04-21 14:14 | Outpatient (CLI) | payer OTHER, SELFPAY ==
[2023-04-21 16:53] LABS: Iron 60 ug/dL (37-170)
[2023-04-21 17:02] LABS: Percent Iron Saturation 15 % (20-50)
[2023-04-21 17:13] LABS: Free T4 Free Thyroxine 3.06 ng/mL (0.78-2.19)
[2023-04-21 17:20] LABS: Thyroid Stimulating Hormone < 0.015 uIU/mL (0.465-4.680)
== END 2023-04-21 14:15 | disposition home or self-care (01) ==
LOC: ANHWCLAB 14:16
PROVIDERS: PCP Physician Assistant; Visit Provider Internal Medicine Endocrinology, Diabetes & Metabolism
DX: E05.00 Thyrotoxicosis with diffuse goiter without thyrotoxic crisis or storm (principal); L65.9 Nonscarring hair loss, unspecified; E55.9 Vitamin D deficiency, unspecified
CPT/HCPCS: 36415; 82728; 83540; 83550; 84439; 84443

== ENCOUNTER 2023-07-03 10:23 | Outpatient (CLI) | payer OTHER, SELFPAY ==
--- NOTE | ~2023-07-03 | CT_ITS ---
EXAMINATION: CT abdomen wo/w con DATE: 07/03/2023 10:52 INDICATION: Left kidney lesion follow-up TECHNIQUE: Computed tomography (CT) of the abdomen was performed without intravenous contrast. CT of the abdomen was then performed with a total of 100 mL Omnipaque 350 intravenous contrast. The dose-le ngth product (DLP) was 1097.78 mGy-cm. Automated exposure control and iterative reconstruction techni que were employed. COMPARISON: 09/08/2019; MRI, 11/27/2019 FINDINGS: The lung bases are clear. The heart size is normal. The gallbladder is surgically absent. T here is mild enlargement of the common bile duct and central intrahepatic ducts which is likely due t o post cholecystectomy state. The liver, spleen, pancreas, and adrenal glands are normal. The right k idney is unremarkable. There is a stable 10 mm x 7 mm enhancing mass at the posterolateral aspect of the left kidney lower pole. There are no pathologically enlarged abdominal lymph nodes. No free intra peritoneal gas or evidence of bowel obstruction. The appendix is normal. IMPRESSION: 1. Stable 10 mm mass of the left kidney lower pole. Differential includes renal cell carcinoma angeleseve r, behavior remains indolent. Reviewed, dictated and finalized at location F. IMPRESSION: 1. Stable 10 mm mass of the left kidney lower pole. Differential includes renal cell carcinoma however, behavior remains indolent.
[2023-07-03 10:42] LABS: Estimated Glomerular Filt Rate > 60
== END 2023-07-03 10:24 ==
PROVIDERS: PCP Urology; Visit Provider Urology
DX: N28.9 Disorder of kidney and ureter, unspecified (principal)
CPT/HCPCS: 74170; Q9967

== ENCOUNTER 2024-06-17 08:50 | Emergency (ER) | payer MEDICAID, SELFPAY ==
[2024-06-17 08:57] VITALS: BP 172/70; PULSE 97; RESP 20; TEMP 36.9; O2SAT 100
--- NOTE | 2024-06-17 09:00 | ED.URI ---
HPI - URI/Sore Throat General Chief Complaint: Upper Respiratory Infection Stated Complaint: Sinus Time Seen by Provider: 06/17/24 09:00 Source: patient, RN notes reviewed and old records reviewed Mode of arrival: ambulatory Limitations: no limitations History of Present Illness HPI Narrative: 38-year-old female presents to the [facility] with 1 week history a posterior/top headache with intermittent dizziness. Denies any blurry vision, change in vision. Patient denies any light or sound sensitivity. Denies nausea or vomiting. Denies any chest pain or shortness of breath History of Graves disease Patient denies any history of blood pressure issues. States she went for consult for a sleep study and was told that her pressure was elevated 170s over 60s. Reports your consult was at [facility] ear earlier this week Treatments prior to arrival: acetaminophen and ibuprofen Related Data Allergies Allergy/AdvReac Type Severity Reaction Status Date / Time Penicillins Allergy Mild RASH Verified 06/17/24 09:47 amoxicillin Allergy Unknown Rash Verified 06/17/24 09:47 sulfamethizole Allergy Unknown Rash Verified 06/17/24 09:47 sulfamethoxazole Allergy Unknown Rash Verified 06/17/24 09:47 trimethoprim Allergy Unknown Rash Verified 06/17/24 09:47 clarithromycin AdvReac Unknown Nausea Verified 06/17/24 09:47 erythromycin base AdvReac Unknown Nausea Verified 06/17/24 09:47 Review of Systems Review of Systems: All systems reviewed & are unremarkable except as noted in HPI and below Constitutional: Constitutional: Reports as per HPI, Denies body ache(s), Denies chills and Reports headache(s) Eyes: Eyes: Reports no additional eye complaints ENT: Reports system reviewed and no additional complaints, except as documented Cardiovascular: Cardiovascular: Reports no additional cardiovascular complaints, Denies chest pain and Denies dyspnea Respiratory: Respiratory: Reports no additional respiratory complaints, Denies chest congestion, Denies cough and Denies dyspnea Gastrointestinal: Gastrointestinal: Reports no additional gastrointestinal complaints, Denies nausea and Denies vomiting Musculoskeletal: Musculoskeletal: Reports no additional musculoskeletal complaints Integumentary/Breasts: Skin/Breast: Reports system reviewed and no additional complaints, except as docu Neurologic: Reports as per HPI, Denies Abnormal speech present, Denies abnormal gait, Denies confusion, Reports dizziness (Intermittent), Reports headache(s), Denies focal weakness, Denies loss of vision, Denies memory loss and Denies numbness Psychiatric: Psychiatric: Reports no additional psychiatric complaints Allergic/Immunologic: Allergic/Immunologic: Reports no additional allergic/immunologic complaints ON LICENSE OF [facility] Past Medical History Medical History Bartholin gland cyst Body mass index (BMI) 23 or greater (02/01/19) Chronic cholecystitis with calculus Daytime hypersomnia Gallbladder disease Graves' disease Heartburn PMHx of frequent heartburn Hyperthyroidism Infertility Kidney mass Kidney stones Left otitis media Obesity Other hypersomnia UTI (urinary tract infection) Surgical History Surgical History History of cholecystectomy History of extraction of renal calculus Family History Family History Father Hypertension Mother Hypertension Grandparent Hypertension Family history of heart disease in male family member before age 55 Diabetes mellitus Other Family history of cardiovascular disease Family history of seizure disorder Social History Social History Smoking status: Never smoker Alcohol intake: never Substance use: never Lack of Transportation: No Lack of Food: Never True Current Housing: I Have Housing Concerned About Fut
== END 2024-06-17 09:25 | disposition home or self-care (01) ==
PROVIDERS: Emergency Provider Nurse Practitioner; PCP Physician Assistant
DX: R03.0 Elevated blood-pressure reading, without diagnosis of hypertension (principal); R51.9 Headache, unspecified; E05.00 Thyrotoxicosis with diffuse goiter without thyrotoxic crisis or storm; R12 Heartburn; E05.90 Thyrotoxicosis, unspecified without thyrotoxic crisis or storm; E66.9 Obesity, unspecified; Z68.32 Body mass index [BMI] 32.0-32.9, adult
CPT/HCPCS: 99213; G0463

== ENCOUNTER 2024-06-17 09:47 | Emergency (ER) | payer MEDICAID, SELFPAY ==
[2024-06-17 09:53] VITALS: BP 171/90; PULSE 125; RESP 16; TEMP 36.8; O2SAT 100
== END 2024-06-17 11:25 | disposition left against medical advice (07) ==
LOC: ANHED 11:15
PROVIDERS: PCP Physician Assistant
DX: R51.9 Headache, unspecified (principal)
CPT/HCPCS: 99199

== ENCOUNTER 2025-02-16 12:49 | Outpatient (CLI) | payer OTHER, MEDICAID, SELFPAY ==
--- NOTE | ~2025-02-16 | MR_ITS ---
MRI of the brain Clinical History: Dizziness and giddiness Technique: Axial and sagittal T1-weighted images were acquired. These were followed by axial T2-weigh marvel, diffusion weighted, gradient, and FLAIR images. Findings: No acute infarct, intracranial hemorrhage, or mass lesion. There are probable minimal chron ic interstitial changes bilaterally. Ventricles and subarachnoid spaces are unremarkable. Orbits are unremarkable. Paranasal sinuses and m astoids are clear. Major intracranial flow voids are intact. Sagittal midline structures are intact. IMPRESSION: No acute abnormality. Minimal chronic white matter changes. Reviewed, dictated and finalized at location M.
== END 2025-02-16 12:50 | disposition home or self-care (01) ==
PROVIDERS: PCP Physician Assistant; Visit Provider Physician Assistant
DX: R42 Dizziness and giddiness (principal); R51.9 Headache, unspecified
CPT/HCPCS: 70551